=== PATIENT | female | born 1945 | race Asian ===

== ENCOUNTER → 2017-03-30 | Outpatient (CLI) | payer OTHER, MEDICAID | LOC: BMCIMAGING 10:55 | PROVIDERS: ATTEND Registered Nurse General Practice | DX: M17.0 Bilateral primary osteoarthritis of knee (principal) ==

== ENCOUNTER → 2018-08-25 | Outpatient (CLI) | payer OTHER, MEDICAID | LOC: BMCIMAGING 14:17 | PROVIDERS: ATTEND Family Medicine | DX: M51.35 Other intervertebral disc degeneration, thoracolumbar region (principal); M53.86 Other specified dorsopathies, lumbar region ==